=== PATIENT | female | born 1960 | race Caucasian/White ===

== ENCOUNTER → 2020-11-16 | Outpatient (CLI) | payer OTHER | LOC: WOUNDCARE 09:41 | PROVIDERS: ATTEND Surgery | DX: S81.802A Unspecified open wound, left lower leg, initial encounter (principal); L97.222 Non-pressure chronic ulcer of left calf with fat layer exposed; I89.0 Lymphedema, not elsewhere classified; L03.116 Cellulitis of left lower limb; T65.222A Toxic effect of tobacco cigarettes, intentional self-harm, initial encounter; F17.218 Nicotine dependence, cigarettes, with other nicotine-induced disorders | CPT/HCPCS: 99203 ==

== ENCOUNTER → 2020-11-23 | Outpatient (CLI) | payer BC, OTHER | LOC: WOUNDCARE 14:28 | PROVIDERS: ATTEND Surgery | DX: S81.802A Unspecified open wound, left lower leg, initial encounter (principal); I96 Gangrene, not elsewhere classified; L97.222 Non-pressure chronic ulcer of left calf with fat layer exposed; I89.0 Lymphedema, not elsewhere classified; L03.116 Cellulitis of left lower limb; T65.222A Toxic effect of tobacco cigarettes, intentional self-harm, initial encounter; F17.218 Nicotine dependence, cigarettes, with other nicotine-induced disorders | CPT/HCPCS: 99212 ==

== ENCOUNTER → 2020-12-02 | Outpatient (CLI) | payer BC | LOC: WOUNDCARE 12:47 | PROVIDERS: ATTEND Surgery | DX: S81.802A Unspecified open wound, left lower leg, initial encounter (principal); L97.222 Non-pressure chronic ulcer of left calf with fat layer exposed; I89.0 Lymphedema, not elsewhere classified; L03.116 Cellulitis of left lower limb; T65.222A Toxic effect of tobacco cigarettes, intentional self-harm, initial encounter; I96 Gangrene, not elsewhere classified; F17.218 Nicotine dependence, cigarettes, with other nicotine-induced disorders | CPT/HCPCS: 99212 ==

== ENCOUNTER → 2020-12-09 | Outpatient (CLI) | payer BC | LOC: WOUNDCARE 12:14 | PROVIDERS: ATTEND Surgery | DX: S81.802A Unspecified open wound, left lower leg, initial encounter (principal); L97.222 Non-pressure chronic ulcer of left calf with fat layer exposed; I89.0 Lymphedema, not elsewhere classified; L03.116 Cellulitis of left lower limb; T65.222A Toxic effect of tobacco cigarettes, intentional self-harm, initial encounter; F17.218 Nicotine dependence, cigarettes, with other nicotine-induced disorders | CPT/HCPCS: 11042; A6260; G0463 ==

== ENCOUNTER → 2020-12-16 | Outpatient (CLI) | payer BC | LOC: WOUNDCARE 10:27 | PROVIDERS: ATTEND Surgery | DX: I89.0 Lymphedema, not elsewhere classified (principal); I87.332 Chronic venous hypertension (idiopathic) with ulcer and inflammation of left lower extremity; L97.222 Non-pressure chronic ulcer of left calf with fat layer exposed; S81.802A Unspecified open wound, left lower leg, initial encounter; T65.222A Toxic effect of tobacco cigarettes, intentional self-harm, initial encounter; I96 Gangrene, not elsewhere classified; F17.218 Nicotine dependence, cigarettes, with other nicotine-induced disorders | CPT/HCPCS: 11042; A6454; A6456; G0463 ==

== ENCOUNTER → 2020-12-21 | Outpatient (CLI) | payer BC | LOC: WOUNDCARE 13:30 | PROVIDERS: ATTEND Surgery | DX: I89.0 Lymphedema, not elsewhere classified (principal); I96 Gangrene, not elsewhere classified; I87.332 Chronic venous hypertension (idiopathic) with ulcer and inflammation of left lower extremity; L97.222 Non-pressure chronic ulcer of left calf with fat layer exposed; S81.802A Unspecified open wound, left lower leg, initial encounter; T65.222A Toxic effect of tobacco cigarettes, intentional self-harm, initial encounter; F17.218 Nicotine dependence, cigarettes, with other nicotine-induced disorders | CPT/HCPCS: 11042; A6260; G0463 ==

== ENCOUNTER → 2020-12-30 | Outpatient (CLI) | payer BC | LOC: WOUNDCARE 09:53 | PROVIDERS: ATTEND Surgery | DX: S81.802A Unspecified open wound, left lower leg, initial encounter (principal); I89.0 Lymphedema, not elsewhere classified; I96 Gangrene, not elsewhere classified; I87.332 Chronic venous hypertension (idiopathic) with ulcer and inflammation of left lower extremity; L97.222 Non-pressure chronic ulcer of left calf with fat layer exposed; T65.222A Toxic effect of tobacco cigarettes, intentional self-harm, initial encounter; F17.218 Nicotine dependence, cigarettes, with other nicotine-induced disorders | CPT/HCPCS: 11042; A6212; G0463 ==

== ENCOUNTER → 2021-01-13 | Outpatient (CLI) | payer BC | LOC: WOUNDCARE 12:17 | PROVIDERS: ATTEND Surgery | DX: I89.0 Lymphedema, not elsewhere classified (principal); I96 Gangrene, not elsewhere classified; I87.332 Chronic venous hypertension (idiopathic) with ulcer and inflammation of left lower extremity; L97.222 Non-pressure chronic ulcer of left calf with fat layer exposed; S81.802A Unspecified open wound, left lower leg, initial encounter; T65.222A Toxic effect of tobacco cigarettes, intentional self-harm, initial encounter; F17.218 Nicotine dependence, cigarettes, with other nicotine-induced disorders | CPT/HCPCS: 11042; A6212; G0463 ==

== ENCOUNTER → 2021-01-20 | Outpatient (CLI) | payer BC, OTHER | LOC: WOUNDCARE 12:15 | PROVIDERS: ATTEND Surgery | DX: I89.0 Lymphedema, not elsewhere classified (principal); I96 Gangrene, not elsewhere classified; I87.332 Chronic venous hypertension (idiopathic) with ulcer and inflammation of left lower extremity; L97.222 Non-pressure chronic ulcer of left calf with fat layer exposed; S81.802A Unspecified open wound, left lower leg, initial encounter; T65.222A Toxic effect of tobacco cigarettes, intentional self-harm, initial encounter; F17.218 Nicotine dependence, cigarettes, with other nicotine-induced disorders | CPT/HCPCS: 99212 ==